=== PATIENT | male | born 1975 | race Caucasian/White ===

== ENCOUNTER 2019-07-31 08:57 | Emergency (ER) | payer SELFPAY ==
[2019-07-31] MEDS ORDERED: Dextrose 5%-Lactated Ringers 1,000 ML IV SCH (10:15)
--- NOTE | 2019-07-31 11:52 | EDM.PDOC ---
ED HPI GENERAL MEDICAL PROBLEM - General Chief Complaint: Behavioral/Psych Stated Complaint: SUICIDAL IDEATIONS Time Seen by Provider: 07/31/19 09:29 Source of Information: Reports: Patient, RN Notes Reviewed - History of Present Illness INITIAL COMMENTS - FREE TEXT/NARRATIVE: 44-year-old male comes in with suicidal ideation. He does have history of chronic depression. He states he has been on antidepressants and has seen various counselors in the past not seen a counselor for a long time and has been off medication for about the last 18 months. He's been feeling more depressed this past week or 2. Having more suicidal thoughts the last 3-4 days. He states he normally only drinks alcohol on occasion but has been drinking alcohol more frequently and more of it for the past 1-2 weeks. He states he is drinking the alcohol to self medicate, not that he feels he is alcohol dependent. He has not been using drugs of any type. He is not on any regular medications at this time. He does not smoke. - Related Data Allergies Allergy/AdvReac Type Severity Reaction Status Date / Time amoxicillin Allergy Cannot Verified 07/31/19 09:06 Remember Penicillins Allergy Cannot Verified 07/31/19 09:06 Remember Home Meds: Home Meds . [No Known Home Meds] 07/31/19 [History] Past Medical History Psychiatric History: Reports: Anxiety, Depression, Suicidal Ideation Endocrine/Metabolic History: Reports: Diabetes, Type II Other Endocrine/Metabolic History: on metformin in the past - Past Surgical History HEENT Surgical History: Reports: Tonsillectomy Social & Family History - Tobacco Use Smoking Status *Q: Current Every Day Smoker Years of Tobacco use: 20 Packs/Tins Daily: 0.2 - Caffeine Use Caffeine Use: Reports: Soda - Alcohol Use Days Per Week of Alcohol Use: 7 Number of Drinks Per Day: 6 Total Drinks Per Week: 42 - Recreational Drug Use Recreational Drug Use: No ED ROS GENERAL - Review of Systems Review Of Systems: See Below Constitutional: Denies: Fever, Chills, Diaphoresis HEENT: Reports: No Symptoms Respiratory: Denies: Shortness of Breath Cardiovascular: Denies: Chest Pain GI/Abdominal: Denies: Abdominal Pain, Nausea, Vomiting Musculoskeletal: Denies: Shoulder Pain, Arm Pain Skin: Reports: Bruising (Occasional bruising lower legs) Neurological: Reports: Numbness (Patient has sensation of "pins and needles bilateral feet) Psychiatric: Reports: Anxiety, Depression, Suicidal Ideation - Physical Exam Exam: See Below Exam Limited By: No Limitations General Appearance: Alert Eye Exam: Bilateral Eye: PERRL Ears: Normal External Exam Nose: Normal Inspection Throat/Mouth: Normal Inspection Head Exam: Atraumatic. No: Facial Swelling Neck: Supple, Non-Tender Respiratory/Chest: No Respiratory Distress, Lungs Clear, Normal Breath Sounds Cardiovascular: Tachycardia GI/Abdominal: Soft, Non-Tender Neuro Exam (Abbreviated): Alert, Oriented, No Motor/Sensory Deficits Extremities: Normal Inspection, Normal Range of Motion Skin Exam: Warm, Dry, Normal Color, Ecchymosis (Couple small areas of bruising both lower anterior legs) Course - Vital Signs Last Recorded V/S: Last Vital Signs Temp 98.4 F 07/31/19 09:06 Pulse 114 H 07/31/19 09:06 Resp 12 07/31/19 09:06 BP 163/109 H 07/31/19 09:06 Pulse Ox 98 07/31/19 09:06 - Orders/Labs/Meds Orders: Active Orders 24 hr Category Date Time Status MAGNESIUM [CHEM] Routine Lab 07/31/19 09:48 Received Dextrose 5%-Lactated Ringers 1,000 ml Med 07/31/19 10:15 Active IV ASDIRECTED Medication Orders Dextrose/Lactated Ringer's (Dextrose 5%-Lactated Ringers) 1,000 mls @ 150 mls/ hr IV ASDIRECTED RAFAEL Last Admin: 07/31/19 10:36 Dose: 150 mls/hr Labs: Laboratory Tests 07/31/19 07/31/19 07/31/19 Range/Units 09:48 09:48 11:35 WBC 4.72 (4.23-9.07) K/mm3 RBC 5.70 (4.63-6.08) M/mm3 Hgb 16.6 (13.7-17.5) gm/dl Hct 46.7 (40.1-51.0) % MCV 81.9 (79.0-92.2) fl MCH 29.1 (25.7-32.2) pg MCHC 35.5 (32.2-35.5) g/dl RDW Std Deviation 41.6 (35.1-43.9) fL Plt Count 152 L (163-337) K/mm3 MPV 9.2 L (9.4-12.3) fl Neut % (Auto) 76.6 H (34.0-67.9) % Lymph % (Auto) 9.7 L (21.8-53.1) % [place] % (Auto) 9.1 (5.3-12.2) % Eos % (Auto) 4.0 (0.8-7.0) Baso % (Auto) 0.4 (0.1-1.2) % Neut # (Auto) 3.61 (1.78-5.38) K/mm3 Lymph # (Auto) 0.46 L (1.32-3.57) K/mm3 [place] # (Auto) 0.43 (0.30-0.82) K/mm3 Eos # (Auto) 0.19 (0.04-0.54) K/mm3 Baso # (Auto) 0.02 (0.01-0.08) K/mm3 Manual Slide Review Abnormal smear Sodium 131 L (136-145) mEq/L Potassium 4.0 (3.5-5.1) mEq/L Chloride 97 L (98-107) mEq/L Carbon Dioxide 24 (21-32) mEq/L Anion Gap 14.0 (5-15) BUN 11 (7-18) mg/dL Creatinine 0.9 (0.7-1.3) mg/dL Est Cr Clr Drug Dosing 110.40 mL/min Estimated GFR (MDRD) > 60 (>60) mL/min BUN/Creatinine Ratio 12.2 L (14-18) Glucose 395 H (74-106) mg/dL Calcium 8.9 (8.5-10.1) mg/dL Total Bilirubin 1.2 H (0.2-1.0) mg/dL AST 18 (15-37) U/L ALT 33 (16-63) U/L Alkaline Phosphatase 157 H (46-116) U/L Total Protein 7.4 (6.4-8.2) g/dl Albumin 4.1 (3.4-5.0) g/dl Globulin 3.3 gm/dL Albumin/Globulin Ratio 1.2 (1-2) Urine Opiates Screen Negative (WOLANI=162) Ur Buprenorphine Scrn Negative (CUTOFF=10) Ur Oxycodone Screen Negative (KKM8CG=877) Urine Methadone Screen Negative (KOS0RC=290) Ur Propoxyphene Screen Negative (WTSBIR=772) Ur Barbiturates Screen Negative (ALHTIM=027) Ur Tricyclics Screen Negative (WKMOGG=031) Ur Phencyclidine Scrn Negative (CUTOFF=25) Ur Amphetamine Screen Negative (VXMDYZ=612) U Methamphetamines Scrn Negative (UXJQPP=778) U Benzodiazepines Scrn Negative (LNRJFF=650) U Cocaine Metab Screen Negative (GTDWXA=485) U Marijuana (THC) Screen Negative (CUTOFF=50) Ethyl Alcohol 0.00 (0.00) gm% Meds: Medications Generic Name Dose Route Start Last Admin Trade Name Freq PRN Reason Stop Dose Admin Dextrose/Lactated Ringer's 1,000 mls @ 150 mls/hr 07/31/19 10:15 07/31/19 10: 36 Dextrose 5%-Lactated Ringers IV 150 mls/hr ASDIRECTED [facility] Administration - Re-Assessments/Exams Free Text/Narrative Re-Assessment/Exam: 07/31/19 12:13 Patient has strong suicidal ideation. He is not currently under the care of a psychiatrist and has been off medication for about 18 months. Therefore he has strong indication for inpatient psychiatry hospitalization, evaluation. I have discussed this with Dr Sylvester, [facility]. Meghan our social media director is working to arrange for transportation at this time. The plan is for him to go by [facility]'s deputy. Appropriate commital papers have been filled out and signed. Blood alcohol did come back negative, screen negative. Her okay, he is medically stable for transfer. He will be a direct admit to inpatient psych. 07/31/19 12:28 Departure - Departure Time of Disposition: 12:15 Disposition: DC/Tfer to Acute Hospital 02 Condition: Serious Clinical Impression: Suicidal ideation, Depression - Discharge Information Referrals: PCP,None [Primary Care Provider] - Forms: ED Department Discharge Sepsis Event Note - Evaluation Sepsis Screening Result: No Definite Risk - Focused Exam Vital Signs: Vital Signs Temp Pulse Resp BP Pulse Ox 07/31/19 09:06 98.4 F 114 H 12 163/109 H 98 Date Exam was Performed: 07/31/19 Time Exam was Performed: 12:28 - My Orders Last 24 Hours: My Active Orders 07/31/19 09:48 MAGNESIUM [CHEM] Routine 07/31/19 10:15 Dextrose 5%-Lactated Ringers 1,000 ml IV ASDIRECTED - Assessment/Plan Last 24 Hours: My Active Orders 07/31/19 09:48 MAGNESIUM [CHEM] Routine 07/31/19 10:15 Dextrose 5%-Lactated Ringers 1,000 ml IV ASDIRECTED
[2019-07-31] MEDS ORDERED: Insulin Regular, Human 100 Units/ML 3 ML Vial SUBCUT ONE (12:33)
[2019-07-31] MEDS ORDERED: metFORMIN 500 MG Tab PO ONE (12:33)
[2019-07-31] MEDS ORDERED: Sodium Chloride 0.9% 1,000 ML ONE (12:36)
[2019-07-31] MEDS ORDERED: Sodium Chloride 0.9% 1,000 ML IV SCH (12:45)
== END 2019-07-31 17:20 ==
LOC: JD.ED 08:57
DX: F32.9 Major depressive disorder, single episode, unspecified (principal); E11.9 Type 2 diabetes mellitus without complications; F17.210 Nicotine dependence, cigarettes, uncomplicated; Z88.0 Allergy status to penicillin; Z88.1 Allergy status to other antibiotic agents
CPT/HCPCS: 36415; 80053; 80306; 80320; 82962; 83735; 85025; 96360; 96361; 99285; A9270; J1815; J7030; J7121; G0480